=== PATIENT | female | born 1965 | race Caucasian/White ===

== ENCOUNTER 2019-02-24 01:03 | Observation (INO) ==
[2019-02-24 01:46] LABS: Hemoglobin 3.9 g/dL (11.5-15.4)
[2019-02-24] MEDS ORDERED: 0.9 % Sodium Chloride 500 ML ONE (03:05)
[2019-02-24] MEDS ORDERED: Ondansetron 4 MG/2 ML VIAL IVP PRN (04:18)
[2019-02-24] MEDS ORDERED: Naloxone 0.4 MG/ML INJ IVP PRN (04:18)
[2019-02-24] MEDS ORDERED: 0.9 % Sodium Chloride 1,000 ML IVC SCH (04:30)
[2019-02-24] MEDS ORDERED: Cyanocobalamin (B-12) 1,000 MCG/ML VIAL SQ ONE (05:01)
[2019-02-24] MEDS ORDERED: *HR* Heparin 5,000 UNIT/ML VIAL SQ SCH (06:00)
[2019-02-24 06:52] LABS: Hematocrit 19.3 % (35.3-44.9); Immature Reticulocyte % 33.9 % (11.0-38.0); Retculocyte # 0.06 M/mcL (0.05-0.10); Reticulocyte % 2.2 % (1.6-2.8)
[2019-02-24 06:56] LABS: Hemoglobin 5.1 g/dL (11.5-15.4)
[2019-02-24 07:06] LABS: % Iron Saturation 5 % (15-50); Iron 33 mcg/dL (50-170); Transferrin 441 mg/dL (203-362)
[2019-02-24] MEDS ORDERED: 0.9 % Sodium Chloride 250 ML ONE (07:41)
[2019-02-24] MEDS ORDERED: Pantoprazole 40 MG VIAL IVP SCH (10:46)
[2019-02-24] MEDS ORDERED: *HR* Labetalol 20 MG/4 ML SYRINGE IVP PRN (10:53)
[2019-02-24] MEDS ORDERED: Ferumoxytol 510 MG in 0.9 % Sodium Chloride 100 ML IVPB ONE (13:55)
[2019-02-24 17:44] LABS: Hematocrit 27.6 % (35.3-44.9); Hemoglobin 8.2 g/dL (11.5-15.4)
[2019-02-25 05:22] LABS: Prothrombin Time 11.7 Seconds (9.4-12.1)
[2019-02-25 05:23] LABS: Hemoglobin 8.4 g/dL (11.5-15.4)
[2019-02-25 07:06] VITALS: BP 143/82
== END 2019-02-25 11:14 | disposition home or self-care (01) ==
LOC: EMEROOARM 01:03 → 2NENU 01:03 → SUATTDRO 03:15 → 2NENU 03:46
PROVIDERS: ADMIT Student in an Organized Health Care Education/Training Program; ATTEND Student in an Organized Health Care Education/Training Program